=== PATIENT | female | born 1935 | race Caucasian/White ===

== ENCOUNTER 2018-02-01 10:48 | Emergency (ER) | payer MEDICARE, OTHER ==
[2018-02-01] MEDS: traMADol 50 MG TAB PO (13:54)
== END 2018-02-01 14:03 | disposition home or self-care (01) ==
LOC: FTE 10:48
DX: S42.202A Unspecified fracture of upper end of left humerus, initial encounter for closed fracture (principal); I10 Essential (primary) hypertension; W18.39XA Other fall on same level, initial encounter; Y92.9 Unspecified place or not applicable
CPT/HCPCS: 29105; 73060; 73610; 99284-25

== ENCOUNTER 2019-04-05 12:28 | Emergency (ER) | payer MEDICARE, OTHER ==
[2019-04-05] MEDS: KETOROLAC 30 MG INJ IM (14:20)
[2019-04-05] MEDS: ACETAMINOPHEN 500 MG TAB PO (14:21)
== END 2019-04-05 14:58 | disposition home or self-care (01) ==
LOC: FTE 14:58
DX: S52.501A Unspecified fracture of the lower end of right radius, initial encounter for closed fracture (principal); S52.601A Unspecified fracture of lower end of right ulna, initial encounter for closed fracture; I10 Essential (primary) hypertension; W01.0XXA Fall on same level from slipping, tripping and stumbling without subsequent striking against object, initial encounter; Y92.9 Unspecified place or not applicable
CPT/HCPCS: 29105; 73110-RT; 96372; 99284-25